=== PATIENT | male | born 1985 | race Two or more races ===

== ENCOUNTER 2022-04-28 17:59 | Emergency (ER) | payer OTHER, SELFPAY ==
--- NOTE | ~2022-04-28 | CT_ITS ---
EXAMINATION: CT BRAIN, CT CERVICAL SPINE WITHOUT CONTRAST. RIGHT HAND AND CHEST EXAM. CLINICAL INFORMATION: Fall, pain. COMPARISON: None TECHNIQUE: 5 minutes thin axial and reformatted 2 minutes thin sagittal coronal images of brain were obtained without contrast. Axial 3 mm thin and reformatted 2 mm thin sagittal coronal images of cervical spine were obtained. DLP 1463. Chest one view. Right hand 3 views. FINDINGS: Brain: There is no acute intra-axial, extra-axial bleed, masses or midline shift. There is no acute infarction in evolution. Both lateral ventricles are symmetrical in size and configuration without enlargement. Bone windows reveal no calvarial abnormality. There is mild mucoperiosteal thickening bilateral frontal sinuses slightly greater on the left. Rest of the paranasal sinuses and mastoid air cells are well aerated. Cervical spine: There is mild straightening of cervical lordosis. The vertebral heights, alignment and disc heights are normal. There is no visible acute fracture, dislocation or subluxation seen. The prevertebral and paravertebral soft tissues are normal. Chest x-ray: The lungs are well-expanded and clear. The heart size and pulmonary vascularity is normal. No gross bony abnormality seen. Right hand: There is no visible acute fracture, dislocation subluxation. The soft tissues are unremarkable. CT/CT head/brain wo con IMPRESSION: No acute intracranial process seen. Mild straightening of cervical lordosis likely spasm or positional. No acute fracture or dislocation. Unremarkable chest exam. Unremarkable right hand exam.
--- NOTE | ~2022-04-28 | CT_ITS ---
EXAMINATION: CT BRAIN, CT CERVICAL SPINE WITHOUT CONTRAST. RIGHT HAND AND CHEST EXAM. CLINICAL INFORMATION: Fall, pain. COMPARISON: None TECHNIQUE: 5 minutes thin axial and reformatted 2 minutes thin sagittal coronal images of brain were obtained without contrast. Axial 3 mm thin and reformatted 2 mm thin sagittal coronal images of cervical spine were obtained. DLP 1463. Chest one view. Right hand 3 views. FINDINGS: Brain: There is no acute intra-axial, extra-axial bleed, masses or midline shift. There is no acute infarction in evolution. Both lateral ventricles are symmetrical in size and configuration without enlargement. Bone windows reveal no calvarial abnormality. There is mild mucoperiosteal thickening bilateral frontal sinuses slightly greater on the left. Rest of the paranasal sinuses and mastoid air cells are well aerated. Cervical spine: There is mild straightening of cervical lordosis. The vertebral heights, alignment and disc heights are normal. There is no visible acute fracture, dislocation or subluxation seen. The prevertebral and paravertebral soft tissues are normal. Chest x-ray: The lungs are well-expanded and clear. The heart size and pulmonary vascularity is normal. No gross bony abnormality seen. Right hand: There is no visible acute fracture, dislocation subluxation. The soft tissues are unremarkable. CT/CT cervical spine wo con IMPRESSION: No acute intracranial process seen. Mild straightening of cervical lordosis likely spasm or positional. No acute fracture or dislocation. Unremarkable chest exam. Unremarkable right hand exam.
[2022-04-28 18:40] VITALS: BP 118/80; PULSE 77; O2SAT 97
[2022-04-28 18:46] VITALS: BP 112/62; PULSE 60; RESP 16; TEMP 36.7; O2SAT 99; BMI 44.0
--- NOTE | 2022-04-28 18:52 | ECG_ITS ---
Test Reason : CHEST PRESSURE Blood Pressure : / mmHG Vent. Rate : 063 BPM Atrial Rate : 063 BPM P-R Int : 148 ms QRS Dur : 098 ms QT Int : 390 ms P-R-T Axes : 033 -32 007 degrees QTc Int : 399 ms Normal sinus rhythm Left axis deviation Minimal voltage criteria for LVH, may be normal variant ( R in aVL ) Abnormal ECG No previous ECGs available Referred By: Torri Mcmullen Electronically Signed By:FARHAT RODRIGUEZ
--- NOTE | 2022-04-28 19:20 | ED.FALL ---
HPI - Fall General Chief Complaint: Fall Stated Complaint: FALL Time Seen by Provider: 04/28/22 18:14 Source: patient and EMS Mode of arrival: EMS Limitations: no limitations History of Present Illness HPI Narrative: Patient comes to the emergency room via ambulance. Patient states that he was out jogging, patient tripped, fell flat on his face. Patient states that he lost consciousness. Patient complaining of pain in the back of his neck and right pinky finger. Patient also complaining of chest pain, attributed to landing on his chest. Patient also complaining of minor abrasions. Related Data Previous Rx's Medication Instructions Recorded tramadol 50 mg tablet 50 mg PO BID PRN pain #6 tabs 04/28/22 Allergies Allergy/AdvReac Type Severity Reaction Status Date / Time No Known Allergies Allergy Verified 04/28/22 18:49 Review of Systems Review of Systems: Constitutional : No Weight loss, No Fever, No Chills, No Night Sweats, No Fatigue, No Malaise ENT/Mouth : No Hearing loss, No Ear Pain, No Nasal Congestion, No Sinus Pain, No Hoarseness, No sore throat, No Rhinorrhea, No Swallowing Difficulty Eyes: No Eye Pain, No Swelling, No Redness, No Foreign Body, No Discharge, No Vision Changes Cardiovascular : Complaining of chest discomfort, No SOB, No Dyspnea on Exertion, No Orthopnea, No Edema, No Palpitations Respiratory : No Cough, No Sputum, No Wheezing, No Smoke Exposure, No Dyspnea Gastrointestinal : No Nausea, No Vomiting, No Diarrhea, No Constipation, No abdominal Pain, No Hematochezia, No Melena Genitourinary : no irregular bleeding, No Dysuria, No Urinary Frequency, No Hematuria, No Urinary Incontinence, No Urgency, No Flank Pain, No Urinary Flow Changes, No Hesitancy Musculoskeletal : No joint pain, No Myalgias, No Joint Swelling, complaining of finger in his right 5th digit Skin : No Skin Lesions, No rash Neuro : No Weakness, No Numbness, No Paresthesias, complaining of loss of consciousness after a fall Psych : No Anxiety/Panic, No Depression, No SI/HI/AH/VH, No Social Issues, Heme/Lymph: No Bruising, No Bleeding,No Lymphadenopathy Endocrine : No Polyuria, No Polydipsia, No Temperature Intolerance PMFSH Social History Social History Advance Directives: No Advance Directives Information Provided: Yes Physical Exam Vital Signs: Vital Signs: Last Vital Signs Temp 98.0 F 04/28/22 18:46 Pulse 60 04/28/22 18:46 Resp 16 04/28/22 18:46 BP 112/62 04/28/22 18:46 Pulse Ox 99 04/28/22 18:46 O2 Del Method 04/28/22 18:46 BMI result Body Mass Index 44.0 Const: Other: Appearance: Alert. Oriented X3. No acute distress. Eyes: Pupils equal, round and reactive to light. ENT: Pharynx normal. Neck: Normal inspection. Neck supple. No lymph nodes noted. No crepitus CVS: Normal heart rate and rhythm. Pulses normal. Normal S1 and S2 Respiratory: No respiratory distress. Breath sounds normal. No Wheezing. No rales Abdomen: Soft and nontender. No rigidity. No distention. Skin: Skin warm and dry. Patient has multiple abrasions on the face, upper extremities, torso and abdomen and lower extremities the frontal aspect.. Extremities: No lower extremity edema. No Lacerations. No Rash Neuro: Oriented X 3. No motor deficit. No sensory deficit. Moving all extremities. No slurred speech. CN 2 through 12 grossly intact Psych: calm, cooperative, normal affect Course Course Course Narrative: Patient's head and cervical spine CT did not show any acute pathology, x-rays for the chest and the right hand are negative for fractures. Patient declined blood work. Patient no longer having chest pain, attributed to the impact, EKG within normal limits. Patient's abrasions were cleaned MDM - Fall Imaging Data Head cervical spine CT, chest x-ray and right hand x-ray: Radiologist's impression: TECHNIQUE: 5 minutes thin axial and reformatted 2 minutes thin sagittal coronal images of brain were obtained without contrast. Axial 3 mm thin and reformatted 2 mm thin sagittal coronal images of cervical spine were obtained. DLP 1463. Chest one view. Right hand 3 views. FINDINGS: Brain: There is no acute intra-axial, extra-axial bleed, masses or midline shift. There is no acute infarction in evolution. Both lateral ventricles are symmetrical in size and configuration without enlargement. Bone windows reveal no calvarial abnormality. There is mild mucoperiosteal thickening bilateral frontal sinuses slightly greater on the left. Rest of the paranasal sinuses and mastoid air cells are well aerated. Cervical spine: There is mild straightening of cervical lordosis. The vertebral heights, alignment and disc heights are normal. There is no visible acute fracture, dislocation or subluxation seen. The prevertebral and paravertebral soft tissues are normal. Chest x-ray: The lungs are well-expanded and clear. The heart size and pulmonary vascularity is normal. No gross bony abnormality seen. Right hand: There is no visible acute fracture, dislocation subluxation. The soft tissues are unremarkable. CT/CT head/brain wo con IMPRESSION: No acute intracranial process seen. ? Mild straightening of cervical lordosis likely spasm or positional. No acute fracture or dislocation. ? Unremarkable chest exam. ? Unremarkable right hand exam.? Discharge Plan Discharge Clinical Impression: Fall, Head injury, Abrasion hand Patient Disposition: Home, Self-Care Instructions: Head Injury (ED), Abrasion (ED), Skin Tear (ED) Additional Instructions: Please follow-up with your primary care physician tomorrow. If you have any worsening or new symptoms, please return to the emergency room or call 911 Prescriptions: New tramadol 50 mg tablet 50 mg PO BID PRN (Reason: pain) Qty: 6 0RF
[2022-04-28] MEDS: traMADoL HCL 50 MG TABLET PO (20:26)
== END 2022-04-28 20:30 | disposition home or self-care (01) ==
PROVIDERS: Emergency Provider Emergency Medicine
DX: S09.90XA Unspecified injury of head, initial encounter (principal); S60.511A Abrasion of right hand, initial encounter; S00.81XA Abrasion of other part of head, initial encounter; S40.812A Abrasion of left upper arm, initial encounter; S40.811A Abrasion of right upper arm, initial encounter; S30.811A Abrasion of abdominal wall, initial encounter; S80.812A Abrasion, left lower leg, initial encounter; S80.811A Abrasion, right lower leg, initial encounter; W01.0XXA Fall on same level from slipping, tripping and stumbling without subsequent striking against object, initial encounter; Y93.02 Activity, running; Y92.414 Local residential or business street as the place of occurrence of the external cause; Y99.9 Unspecified external cause status
CPT/HCPCS: 70450; 71045; 72125; 73120; 93005; 99283; 99284